=== PATIENT | female | born 1950 ===

== ENCOUNTER 2017-02-10 17:24 | Emergency (ER) | payer MEDICAID ==
[2017-02-10 17:25] VITALS: BMI 32.4
[2017-02-10 17:32] VITALS: RESP 18; TEMP 97.7; O2SAT 98
[2017-02-10] MEDS ORDERED: Dexamethasone 4 mg/1 ml IM STA (17:52)
[2017-02-10] MEDS ORDERED: Dexamethasone 4 mg/1 ml ONE (17:55)
--- NOTE | 2017-02-10 17:58 | C.PDOC ---
History Of Present Illness Ailyn Jeronimo, a 66 year old female, presents to the ED complaining of left sided lower back pain which radiates to her left hip and buttocks x3 days. The patient states that she was seen at [facility] yesterday for similar symptoms but is here today at [facility] today because the pain has not improved. Denies trauma, numbness/tingling, bowel/bladder incontinence. PMD: Russ Ramirez Time Seen by Provider: 02/10/17 17:41 Chief Complaint (Nursing): Back Pain History Per: Patient History/Exam Limitations: no limitations Onset/Duration Of Symptoms: Days (x3 days) Current Symptoms Are (Timing): Still Present Quality Of Discomfort: "Pain" Associated Symptoms: denies: Incontinence, New Weakness, New Numbness Exacerbating Factor(s): Movement Past Medical History Reviewed: Historical Data, Nursing Documentation, Vital Signs Vital Signs: Last Vital Signs Temp 97.7 F 02/10/17 19:12 Pulse 60 02/10/17 19:12 Resp 18 02/10/17 19:12 BP 130/72 02/10/17 19:12 Pulse Ox 98 02/10/17 19:12 - Medical History PMH: Gastritis, HTN, Hypercholesterolemia, Osteoporosis Surgical History: No Surg Hx, Tonsillectomy Family History: States: No Known Family Hx - Social History Hx Alcohol Use: No Hx Substance Use: No - Immunization History Hx Tetanus Toxoid Vaccination: No Hx Influenza Vaccination: No Hx Pneumococcal Vaccination: No Review Of Systems Except As Marked, All Systems Reviewed And Found Negative. Genitourinary: Negative for: Incontinence (no bowel nor bladder incontinence) Musculoskeletal: Positive for: Back Pain (back pain which radiaes to her left hi p and buttocks) Neurological: Negative for: Weakness, Numbness Physical Exam - Physical Exam Appears: Non-toxic, No Acute Distress Skin: Normal Color, Warm, Dry, No Rash Head: Atraumatic, Normacephalic, No Tenderness, No Swelling Eye(s): bilateral: Normal Inspection, PERRL, EOMI Ear(s): Bilateral: Normal Nose: Normal, No Discharge, No Deformity, No Tenderness Oral Mucosa: Moist, No Dry, No Drooling Tongue: Normal Appearing, No Swelling, No Lesions, No Laceration Lips: Normal Appearing, No Swelling, No Contusion, No Abrasion Teeth: Normal Dentition, No Caries, No Edentulous, No Dentures Gingiva: Normal Appearing, No Erythema, No Swelling, No Bleeding Throat: Normal, No Erythema, No Exudate Neck: Normal, Normal ROM, No Step Off Deformity, Supple Lymphatic: Normal Exam Chest: Symmetrical, No Deformity, No Tenderness Cardiovascular: Rhythm Regular, No Rhythm Irregular, No Edema Respiratory: Normal Breath Sounds, No Rales, No Rhonchi, No Wheezing Gastrointestinal/Abdominal: Normal Exam, No Bowel Sounds, No Soft, Tenderness, No Mass, No Guarding, No Rebound Back: No Normal Inspection, No CVA Tenderness, No Vertebral Tenderness, No Paraspinal Tenderness, Other (Left sided paralumbar tenderness) Extremity: Normal ROM Neurological/Psych: Oriented x3, Normal Speech, Normal Cognition, Normal Motor, Normal Sensation Gait: Steady ED Course And Treatment O2 Sat by Pulse Oximetry: 98 (RA) Pulse Ox Interpretation: Normal Progress Note: Old records reviewed, the patient was last seen in the [facility] ED on 02/09/17 for similar symptoms. Patient had CT scan of the lumbar spine which is negative and negative lab work. Medical Decision Making Medical Decision Makin Initial Impression: 66 year old female presenting with radiating lower back pain Initial Plan: * Decadron inj 8mg IM * Toradol 30mg IM * Valium 5mg PO * Reevaluation On re-exam, the patient reports improvement of symptoms. Lungs are CTA, heart is RRR, abdomen is soft non-tender and patient is tolerating PO well. Ambulatory in the ED with steady gait. Follow up with the medical doctor within 1-2 days. Return if worsened. Disposition - Disposition Referrals: Chester Marques MD [Non-Staff] - Disposition: HOME/ ROUTINE Disposition Time: 19:00 Condition: FAIR Additional Instructions: Follow up with the medical doctor within 1-2 days. Return if worsened. Prescriptions: Cyclobenzaprine [Flexeril] 5 mg PO TID #21 tab Ibuprofen [Motrin] 1 tab PO TID PRN #30 tab PRN Reason: Pain Instructions: Sciatica (ED) Forms: [employer] ([place]er) Print Language: SERBIAN - Clinical Impression Clinical Impression: Sciatica, Low back pain - Scribe Statement The provider has reviewed the documentation as recorded by the Franciscoibcain Rhodes All medical record entries made by the Franciscoibe were at my direction and personally dictated by me. I have reviewed the chart and agree that the record accurately reflects my personal performance of the history, physical exam, medical decision making, and the department course for this patient. I have also personally directed, reviewed, and agree with the discharge instructions and disposition.
[2017-02-10 19:16] VITALS: BP 130/72; PULSE 60
== END 2017-02-10 19:12 | disposition home or self-care (01) ==
LOC: C.ER 17:24
DX: M54.40 Lumbago with sciatica, unspecified side (principal)
CPT/HCPCS: 96372; 99283; J1100; J1885